=== PATIENT | male | born 1960 | race Caucasian/White ===

== ENCOUNTER 2020-08-17 12:53 | Emergency (ER) | payer MEDICAID, OTHER ==
[2020-08-17 13:09] VITALS: BP 158/99; PULSE 64
[2020-08-17] MEDS ORDERED: Ketorolac 60 MG/2 ML SDV IM ONE (13:25)
--- NOTE | 2020-08-17 13:32 | EDM.PDOC ---
ED HPI GENERAL MEDICAL PROBLEM - General Chief Complaint: Lower Extremity Injury/Pain Stated Complaint: FALL INJURY TO LEFT KNEE RIGHT HIP Time Seen by Provider: 08/17/20 13:15 Source of Information: Reports: Patient History Limitations: Reports: No Limitations - History of Present Illness INITIAL COMMENTS - FREE TEXT/NARRATIVE: patient presented to the ER with a c/o right knee and left hip pain after a fall. Reports that he was on top of his tractor when he slipped and fell. He jumped on the ground and landed on his feet and knees. This occurred approximately 6 hrs ago. No head or back injury. Was able to get up on his own. and continue with his work. Reports that pain has been gradually getting worse - so decided to come to the ER for further eval. No numbness or tignling. Reports pain is 8 out of 10 when he move it. Onset: Sudden Duration: Hour(s): (6) Location: Reports: Lower Extremity, Left, Lower Extremity, Right Quality: Reports: Ache, Dull Severity: Moderate Improves with: Reports: Immobilization, Rest Worsens with: Reports: Movement - Related Data Allergies Allergy/AdvReac Type Severity Reaction Status Date / Time No Known Allergies Allergy Verified 08/17/20 13:08 Home Meds: Home Meds Albuterol Sulfate [Albuterol Sulfate Hfa] 2 puff INH Q4H PRN 08/17/20 [History] traMADol [Ultram] 50 mg PO Q4H PRN #10 tab 08/17/20 [Rx] Past Medical History - Past Surgical History GI Surgical History: Reports: Appendectomy Musculoskeletal Surgical History: Reports: Carpal Tunnel, Shoulder Surgery, Other (See Below) Other Musculoskeletal Surgeries/Procedures:: plate in right foot Social & Family History - Tobacco Use Tobacco Use Status *Q: Current Every Day Tobacco User Review of Systems - Review of Systems Review Of Systems: See Below Constitutional: Reports: No Symptoms Eyes: Reports: No Symptoms Respiratory: Reports: No Symptoms Cardiovascular: Reports: No Symptoms Skin: Reports: No Symptoms Neurological: Reports: No Symptoms Psychiatric: Reports: No Symptoms ED EXAM, GENERAL - Physical Exam Exam: See Below Exam Limited By: No Limitations General Appearance: Alert, WD/WN, No Apparent Distress Eye Exam: Bilateral Eye: PERRL Respiratory/Chest: No Respiratory Distress Cardiovascular: Regular Rate, Rhythm, No Edema Back Exam: Normal Inspection, Full Range of Motion Extremities: Normal Inspection, Other (mild limited ROM / leg elevation on the right due to hip pain) Neurological: Alert, Oriented, Normal Cognition Skin Exam: Warm, Dry Course - Vital Signs Last Recorded V/S: Last Vital Signs Temp 36.7 C 08/17/20 13:02 Pulse 64 08/17/20 13:02 Resp 16 08/17/20 13:02 BP 158/99 H 08/17/20 13:02 Pulse Ox 96 08/17/20 13:02 - Orders/Labs/Meds Orders: Active Orders 24 hr Category Date Time Status Hip Min 2V or 3V w Pelvis Rt [CR] Stat Exams 08/17/20 13:26 Taken Knee 1V or 2V Lt [CR] Stat Exams 08/17/20 13:26 Taken Meds: Medications Discontinued Medications Generic Name Dose Route Start Last Admin Trade Name Freq PRN Reason Stop Dose Admin Ketorolac Tromethamine Confirm 08/17/20 13:34 08/17/20 13:39 Ketorolac 60 Mg/2 Ml Sdv Administered 08/17/20 13:35 Not Given Dose 60 mg .ROUTE .STK-MED ONE Ketorolac Tromethamine 60 mg 08/17/20 13:25 08/17/20 13:39 Ketorolac 60 Mg/2 Ml Sdv IM 08/17/20 13:26 60 mg ONETIME ONE Administration - Re-Assessments/Exams Free Text/Narrative Re-Assessment/Exam: xrays left knee - no acute fracture xrays right hip - no fractures or dislocation IM toradol 60mg - pain improved Departure - Departure Time of Disposition: 14:14 Disposition: Home, Self-Care 01 Condition: Good Clinical Impression: Hip pain, right, Injury of knee, left - Discharge Information *PRESCRIPTION DRUG MONITORING PROGRAM REVIEWED*: Not Applicable *COPY OF PRESCRIPTION DRUG MONITORING REPORT IN PATIENT BRII: Not Applicable Prescriptions: traMADol [Ultram] 50 mg PO Q4H PRN #10 tab PRN Reason: Pain Instructions: Hip Pain, Tramadol tablets, Muscle Strain, [id number] Referrals: PCP,None [Primary Care Provider] - Forms: ED Department Discharge Additional Instructions: - take Tylenol for pain as needed - recommend to follow up with the primary care provider to rule out inguinal hernia - return to the ER if any concerns or worsening of symptoms Sepsis Event Note (ED) - Evaluation Sepsis Screening Result: No Definite Risk - Focused Exam Vital Signs: Vital Signs Temp Pulse Resp BP Pulse Ox 08/17/20 13:02 36.7 C 64 16 158/99 H 96 08/17/20 12:58 36.7 C 64 20 158/99 H 96 - Problem List & Annotations (1) Hip pain, right SNOMED Code(s): 38656858 Code(s): M25.551 - PAIN IN RIGHT HIP Status: Acute Priority: Medium Current Visit: Yes (2) Injury of knee, left SNOMED Code(s): 799800393 Code(s): S89.92XA - UNSPECIFIED INJURY OF LEFT LOWER LEG, INITIAL ENCOUNTER Status: Acute Priority: Medium Current Visit: Yes Qualifiers: Encounter type: initial encounter Qualified Code(s): S89.92XA - Unspecified injury of left lower leg, initial encounter - Problem List Review Problem List Initiated/Reviewed/Updated: Yes - My Orders Last 24 Hours: My Active Orders 08/17/20 13:26 Hip Min 2V or 3V w Pelvis Rt [CR] Stat Knee 1V or 2V Lt [CR] Stat - Assessment/Plan Last 24 Hours: My Active Orders 08/17/20 13:26 Hip Min 2V or 3V w Pelvis Rt [CR] Stat Knee 1V or 2V Lt [CR] Stat Plan: - take Tylenol for pain as needed - recommend to follow up with the primary care provider to rule out inguinal hernia - return to the ER if any concerns or worsening of symptoms
[2020-08-17] MEDS ORDERED: Ketorolac 60 MG/2 ML SDV ONE (13:34)
--- NOTE | 2020-08-17 18:45 | CR ---
DATE OF SERVICE: 08/17/2020 CLINICAL DATA: Fall. LEFT KNEE: No acute fracture or dislocation. No lytic or blastic bone lesions. No significant arthritic changes. No significant joint effusion. [id number] [facility]
--- NOTE | 2020-08-17 18:51 | CR ---
DATE OF SERVICE: 08/17/2020 CLINICAL DATA: Fall. PELVIS AND RIGHT HIP: There are mild osteoarthritic changes of both hip joints. There are degenerative changes involving the SI joints and symphysis pubis. There are degenerative disc disease in the lower lumbar spine. No acute fracture or dislocation. No lytic or blastic bone lesions. [id number] [facility]
== END 2020-08-17 14:20 | disposition home or self-care (01) ==
LOC: LB.ED 12:53
DX: S89.92XA Unspecified injury of left lower leg, initial encounter (principal); M25.551 Pain in right hip; Z72.0 Tobacco use; W01.0XXA Fall on same level from slipping, tripping and stumbling without subsequent striking against object, initial encounter
CPT/HCPCS: 73502-RT; 73560-LT; 96372; 99283-25; J1885

== ENCOUNTER 2022-10-07 13:16 | Emergency (ER) | payer OTHER ==
[2022-10-07] MEDS: Albuterol/Ipratropium 3.0-0.5 MG/3 ML Neb Soln NEB PRN (13:47)
[2022-10-07 14:12] LABS: BASOPHILS ABSOLUTE AUTO 0.02 K/uL (0.02-0.10); BASOPHILS PERCENT AUTO 0.3 % (0.0-0.5); EOSINOPHILS PERCENT AUTO 2.6 % (1.0-5.0); HEMATOCRIT 45.7 % (40.0-54.0); HEMOGLOBIN 15.6 g/dL (13.0-18.0); LYMPHOCYTES ABSOLUTE AUTO 1.91 K/uL (1.50-4.00); LYMPHOCYTES PERCENT AUTO 24.7 % (20.0-40.0); MEAN CORPUSCULAR HEMOGLOBIN 31.1 pg (27.0-32.0); MEAN CORPUSCULAR HGB CONC 34.1 g/dL (31.0-35.0); MEAN CORPUSCULAR VOLUME 91 fL (76-96); MEAN PLATELET VOLUME 11.3 fL (6.0-10.0); MONOCYTES ABSOLUTE AUTO 0.71 K/uL (0.20-0.80); MONOCYTES PERCENT AUTO 9.2 % (3.0-10.0); NEUTROPHILS PERCENT AUTO 63.2 % (45.0-70.0); PLATELET COUNT,PLT 163 K/uL (150-400); RED BLOOD CELL COUNT 5.01 M/uL (4.50-6.50); RED CELL DISTRIBUTION WIDTH 14.4 % (11.0-16.0); WHITE BLOOD CELL COUNT,WBC 7.7 K/uL (4.0-11.0)
[2022-10-07 14:22] LABS: A/G RATIO 1.6 (0.8-2.0); ALBUMIN 3.9 g/dL (3.4-5.0); ANION GAP 10.4 mmol/L (5.0-15.0); BILIRUBIN TOTAL 1.1 mg/dL (0.0-1.0); BUN/CREATININE RATIO 19.4 (6-25); CALCIUM 8.9 mg/dL (8.5-10.1); CARBON DIOXIDE,CO2 27.8 mmol/L (21.0-32.0); CREATININE 0.93 mg/dL (0.70-1.30); EST CRCL DRUG DOSING (CG) 76.22 mL/min; POTASSIUM,K 4.2 mmol/L (3.5-5.1); PROTEIN TOTAL,TP 6.4 g/dL (6.4-8.2)
[2022-10-07 14:28] LABS: TROPONIN I HIGH SENSITIVITY 323.3 pg/ml (<=60.4)
[2022-10-07 14:29] LABS: PROTHROMBIN TIME 10.4 sec (9.0-11.5)
[2022-10-07] MEDS: Heparin Sodium 5,000 Units/ML Vial IVPUSH ONE (14:54)
[2022-10-07] MEDS: Heparin Sodium/D5W 25,000 UNITS/500 ML BAG IV SCH (14:55)
[2022-10-07] MEDS: Aspirin 81 MG Tab.Chew PO ONE (14:55)
[2022-10-07] MEDS: Clopidogrel 75 MG Tab PO ONE (14:56)
[2022-10-08] MEDS: Clopidogrel 75 MG Tab ONE (13:23)
== END 2022-10-07 18:45 ==
LOC: LB.ED 13:16
DX: I21.4 Non-ST elevation (NSTEMI) myocardial infarction (principal)
CPT/HCPCS: 36415; 71045; 80053; 83735; 84484; 85025; 85610; 85730; 93005; 94640; 96365; 96366; 99285-25; A9270-GY; J1644; J7620

== ENCOUNTER 2023-03-20 11:16 | Emergency (ER) | payer OTHER ==
[2023-03-20] MEDS ORDERED: Aspirin 81 MG Tab.Chew PO ONE (11:32)
[2023-03-20] MEDS ORDERED: Sodium Chloride 0.9% 10 ML Syringe FLUSH PRN (11:34)
[2023-03-20 12:01] LABS: BASOPHILS ABSOLUTE AUTO 0.01 K/uL (0.02-0.10); BASOPHILS PERCENT AUTO 0.1 % (0.0-0.5); EOSINOPHILS ABSOLUTE AUTO 0.08 K/uL (0.04-0.40); EOSINOPHILS PERCENT AUTO 0.8 % (1.0-5.0); HEMOGLOBIN 16.3 g/dL (13.0-18.0); LYMPHOCYTES ABSOLUTE AUTO 1.64 K/uL (1.50-4.00); LYMPHOCYTES PERCENT AUTO 16.6 % (20.0-40.0); MEAN CORPUSCULAR HEMOGLOBIN 30.5 pg (27.0-32.0); MEAN CORPUSCULAR VOLUME 90 fL (76-96); MEAN PLATELET VOLUME 10.3 fL (6.0-10.0); MONOCYTES ABSOLUTE AUTO 1.01 K/uL (0.20-0.80); MONOCYTES PERCENT AUTO 10.2 % (3.0-10.0); NEUTROPHILS ABSOLUTE AUTO 7.13 K/uL (2.00-7.50); NEUTROPHILS PERCENT AUTO 72.3 % (45.0-70.0); PLATELET COUNT,PLT 165 K/uL (150-400); RED BLOOD CELL COUNT 5.34 M/uL (4.50-6.50); WHITE BLOOD CELL COUNT,WBC 9.9 K/uL (4.0-11.0)
[2023-03-20 12:26] LABS: A/G RATIO 1.4 (0.8-2.0); ANION GAP 15.1 mmol/L (5.0-15.0); BILIRUBIN TOTAL 1.8 mg/dL (0.0-1.0); BUN/CREATININE RATIO 19.4 (6-25); CALCIUM 9.3 mg/dL (8.5-10.1); CARBON DIOXIDE,CO2 27.7 mmol/L (21.0-32.0); CREATININE 0.98 mg/dL (0.70-1.30); EST CRCL DRUG DOSING (CG) 71.43 mL/min; POTASSIUM,K 3.8 mmol/L (3.5-5.1); PROTEIN TOTAL,TP 6.8 g/dL (6.4-8.2)
[2023-03-20 12:35] LABS: INFLUENZA A NAA NEGATIVE (NEGATIVE); INFLUENZA B NAA NEGATIVE (NEGATIVE); RESPIRATORY SYNCYTIAL VIR NAA NEGATIVE (NEGATIVE)
[2023-03-20 13:01] LABS: CORONAVIRUS COVID-19 NAA NEGATIVE (NEGATIVE)
[2023-03-20] MEDS ORDERED: Albuterol/Ipratropium 3.0-0.5 MG/3 ML Neb Soln ONE (13:03)
[2023-03-20] MEDS ORDERED: predniSONE 20 MG Tab ONE (13:03)
[2023-03-20] MEDS ORDERED: predniSONE 20 MG Tab PO ONE (13:05)
[2023-03-20] MEDS ORDERED: Albuterol/Ipratropium 3.0-0.5 MG/3 ML Neb Soln NEB SCH (13:05)
== END 2023-03-20 15:35 | disposition home or self-care (01) ==
LOC: LB.ED 11:16
DX: J45.909 Unspecified asthma, uncomplicated (principal); J20.9 Acute bronchitis, unspecified; J18.9 Pneumonia, unspecified organism; I10 Essential (primary) hypertension; F17.210 Nicotine dependence, cigarettes, uncomplicated; Z20.822 Contact with and (suspected) exposure to COVID-19
CPT/HCPCS: 0241U; 36415; 71046; 80053; 84484; 85025; 93005; 94640; 99285; A9270-GY; J7512; J7620

== ENCOUNTER 2024-12-27 22:55 | Emergency (ER) | payer SELFPAY ==
[2024-12-27 23:37] LABS: BASOPHILS ABSOLUTE AUTO 0.02 K/uL (0.02-0.10); BASOPHILS PERCENT AUTO 0.2 % (0.0-0.5); EOSINOPHILS ABSOLUTE AUTO 0.21 K/uL (0.04-0.40); EOSINOPHILS PERCENT AUTO 2.4 % (1.0-5.0); LYMPHOCYTES ABSOLUTE AUTO 2.47 K/uL (1.50-4.00); LYMPHOCYTES PERCENT AUTO 28.1 % (20.0-40.0); MEAN PLATELET VOLUME 10.2 fL (6.0-10.0); MONOCYTES ABSOLUTE AUTO 0.85 K/uL (0.20-0.80); MONOCYTES PERCENT AUTO 9.7 % (3.0-10.0); NEUTROPHILS ABSOLUTE AUTO 5.25 K/uL (2.00-7.50); NEUTROPHILS PERCENT AUTO 59.6 % (45.0-70.0); PLATELET COUNT,PLT 171 K/uL (150-400); RED BLOOD CELL COUNT 5.01 M/uL (4.50-6.50); RED CELL DISTRIBUTION WIDTH 14.2 % (11.0-16.0); WHITE BLOOD CELL COUNT,WBC 8.8 K/uL (4.0-11.0)
[2024-12-27 23:39] LABS: APPEARANCE,URINE CLOUDY (CLEAR); GLUCOSE,URINE NEGATIVE (NEGATIVE); OCCULT BLOOD,URINE MODERATE (NEGATIVE)
[2024-12-27 23:57] LABS: A/G RATIO 1.2 (0.8-2.0); ALANINE AMINOTRANSFERASE,ALT 42.0 U/L (12-78); ASPARTATE AMNIOTRANSFERASE,AST 17.0 U/L (15-37); BILIRUBIN TOTAL 1.4 mg/dL (0.0-1.0); BLOOD UREA NITROGEN,BUN 23.0 mg/dL (8-26); CARBON DIOXIDE,CO2 28.6 mmol/L (21.0-32.0); CHLORIDE,CL 105.0 mmol/L (98-107); CREATININE 2.04 mg/dL (0.70-1.30); EST CRCL DRUG DOSING (CG) 33.88 mL/min; ESTIMATED GFR 36.0 mL/min (>60); GLUCOSE RANDOM 109.0 mg/dL (74-100); POTASSIUM,K 3.8 mmol/L (3.5-5.1); PROTEIN TOTAL,TP 6.5 g/dL (6.4-8.2); SODIUM,NA 139.0 mmol/L (136-145)
[2024-12-28 00:57] VITALS: BP 129/92; PULSE 76
== END 2024-12-28 01:07 | disposition home or self-care (01) ==
LOC: LB.ED 22:55
DX: N17.9 Acute kidney failure, unspecified (principal); I10 Essential (primary) hypertension; I25.2 Old myocardial infarction; Z95.5 Presence of coronary angioplasty implant and graft; F17.210 Nicotine dependence, cigarettes, uncomplicated; Z79.82 Long term (current) use of aspirin
CPT/HCPCS: 36415; 74176; 80053; 81001; 85025; 86140; 99283; 99284